=== PATIENT | female | born 1950 | race Caucasian/White ===

== ENCOUNTER 2017-11-07 16:49 | Emergency (ER) | payer MEDICARE ==
[2017-11-07] MEDS ORDERED: HYDROcodone/Acetaminophen 5/325 mg Tablet ONE (17:24)
== END 2017-11-07 18:25 | disposition home or self-care (01) ==
LOC: ERS 16:49
DX: T20.24XA Burn of second degree of nose (septum), initial encounter (principal); T23.272A Burn of second degree of left wrist, initial encounter; T26.01XA Burn of right eyelid and periocular area, initial encounter; E78.5 Hyperlipidemia, unspecified; I10 Essential (primary) hypertension; I25.2 Old myocardial infarction; F41.9 Anxiety disorder, unspecified; Z79.84 Long term (current) use of oral hypoglycemic drugs; Z79.899 Other long term (current) drug therapy; X10.1XXA Contact with hot food, initial encounter
CPT/HCPCS: 87081; 87430; 99283

== ENCOUNTER 2018-03-09 10:52 | Outpatient (CLI) | payer MEDICARE ==
--- NOTE | 2018-03-09 12:05 | RAD ---
LEFT KNEE FOUR VIEWS: HISTORY: Left knee pain. FINDINGS: There are degenerative changes, mild posterior osteophyte formation, and joint space narrowing, most prominent in the medial tibiofemoral compartment. No fracture, dislocation, or bony destruction is s een. Surgical clips are seen in the soft tissues, medially. IMPRESSION: Left knee osteoarthritis. POS: [facility]
== END 2018-03-09 10:53 | disposition home or self-care (01) ==
LOC: RAD-FRANK 10:52
PROVIDERS: ATTEND Nurse Practitioner Family
DX: M17.12 Unilateral primary osteoarthritis, left knee (principal)

== ENCOUNTER 2019-02-15 10:47 | Outpatient (CLI) | payer MEDICARE ==
--- NOTE | 2019-02-15 10:57 | RAD ---
FOUR VIEWS LEFT KNEE: COMPARISON: 03/09/2018. HISTORY: Left knee pain. FINDINGS: Four views of the left knee show no evidence of acute fracture or dislocation. Moderate tricompartme ntal joint space narrowing and osteophyte formation is seen consistent with osteoarthritis. This is greatest in the medial femorotibial compartment. No knee effusion is seen. Mild diffuse soft tissue swelling is seen. Surgical clips are seen along the medial aspect of the knee. IMPRESSION: Moderate left knee osteoarthritis. POS: [facility]
== END 2019-02-15 10:48 | disposition home or self-care (01) ==
LOC: RAD-FRANK 10:47
PROVIDERS: ATTEND Nurse Practitioner Family
DX: M25.562 Pain in left knee (principal); M17.12 Unilateral primary osteoarthritis, left knee

== ENCOUNTER 2019-03-03 09:51 | Outpatient (CLI) | payer MEDICARE ==
--- NOTE | 2019-03-03 11:09 | BD ---
BONE DENSITOMETRY: Date: 03/03/19 HISTORY: Postmenopausal osteoporosis screening. FINDINGS: Lumbar Spine: BMD (g/cm2) L1 1.190 T-Score: 1.8 L2 1.363 T-Score: 3.0 L3 1.371 T-Score: 2.6 L4 1.668 T-Score: 5.5 Total 1.409 T-Score: 3.3 Left Femoral Neck: 0.823 T-Score: -0.2 Total Femur: 1.044 T-Score: 0.8 IMPRESSION: Bone mineral density of the lumbar spine and femoral neck are both within normal range. POS: [facility]
== END 2019-03-03 09:52 | disposition home or self-care (01) ==
LOC: BICMAMMO 09:51
PROVIDERS: ATTEND Nurse Practitioner Family
DX: Z13.820 Encounter for screening for osteoporosis (principal); M25.562 Pain in left knee
CPT/HCPCS: 77080